=== PATIENT | female | born 1960 | race Caucasian/White ===

== ENCOUNTER 2025-01-18 19:01 | Emergency (ER) | payer MEDICARE, MEDICAID, SELFPAY ==
[2025-01-18 19:08] VITALS: BP 138/80; PULSE 60; RESP 12; TEMP 35.9; O2SAT 95; BMI 38.6
--- NOTE | 2025-01-18 19:50 | ED.FALL ---
HPI - Fall General Chief Complaint: Fall Stated Complaint: Fell, caught LLE on bedframe Time Seen by Provider: 01/18/25 19:49 Source: patient Mode of arrival: Ambulatory History of Present Illness HPI Narrative: Patient is a 64-year-old female history of seizure disorder developmental delay presenting today with left foot pain. Here with brother at bedside state that she tripped over her stool at bedside last night when she got tangled up. Landing on her foot under her. Today it is tender for her to walk she denies any ankle pain or knee pain. No head injury. Related Data Allergies Allergy/AdvReac Type Severity Reaction Status Date / Time No Known Drug Allergies Allergy Verified 01/18/25 19:09 Patient History Social History Smoking Status: Never smoker Smoking Status: Never smoker Exam Initial Vital Signs Initial Vital Signs: Vital Signs Temperature 96.6 F L 01/18/25 19:08 Pulse Rate 60 01/18/25 19:08 Respiratory Rate 12 01/18/25 19:08 Blood Pressure 138/80 01/18/25 19:08 Pulse Oximetry 95 01/18/25 19:08 Oxygen Delivery Method Room Air 01/18/25 19:08 GENERAL: Well-appearing, well-nourished and in no acute distress. CARDIOVASCULAR: peripheral pulses in tact, cap refill <2 sec RESPIRATORY: No respiratory distress, speaks in full sentences without difficulty EXTREMITIES: Normal range of motion, no clubbing or edema. Neurovascularly intact Left foot swelling noted mid foot is tender distal pedal pulse intact. Ankle stable no significant malleoli tenderness knee is stable no fibular head tenderness NEUROLOGICAL: Cranial nerves II through XII grossly intact. Normal gait and speech. SKIN: Warm, dry, no petechiae, no rashes or lesions. Course Orders Ordered: ED Orders 01/18/25 19:50 XR foot LT min 3V Stat Discontinued Medications Acetaminophen (Acetaminophen 325 Mg Tablet) 975 mg PO NOW ONE Stop: 01/18/25 19:51 Last Admin: 01/18/25 19:57 Dose: 975 mg Documented By: LEON Vital Signs Vital signs: Vital Signs - 8 hr 01/18/25 19:08 Temperature 96.6 F L Pulse Rate 60 Respiratory Rate 12 Blood Pressure 138/80 Pulse Oximetry 95 Oxygen Delivery Method Room Air MDM - Fall Imaging Data Extremity x-ray #1: Radiologist's Impression: PROCEDURE: XR FOOT LT MIN 3V INDICATIONS: pain injury TECHNIQUE: 3 views of the foot were acquired. COMPARISON: None. FINDINGS: Bones: Severe hallux valgus angulation of the left great toe and lateral deviation of the toes. Moderate degenerative changes of the 1st metatarsophalangeal joint and 1st IP joint. Moderate degenerative changes of the midfoot. No definite fracture. No dislocation seen. No suspicious osseous lesions. Soft tissues: No tibiotalar joint effusion. Achilles tendon appears normal. Mild distal forefoot soft tissue swelling. IMPRESSION: Mild soft tissue swelling of the left forefoot without underlying fracture or dislocation. Severe hallux valgus angulation of the left great toe and associated degenerative changes of the 1st toe. If there is persistent clinical concern for occult fracture given adequate mechanism of injury, consider repeat imaging in 10-14 days. Immobilization as clinically indicated. Dictated by: Denzel Rudd M.D. on 01/18/2025 at 20:29 [facility] Narrative Medical decision making narrative: Patient 64-year-old female presenting today with mechanical fall yesterday and left foot pain. Foot is mildly tender and swollen x-ray is negative for acute fracture. Given orthopedic shoe may need repeat x-ray in 7-10 days Discharge Plan Departure Patient Disposition: Home Clinical Impression: Sprain of foot, left Activity Restrictions/Additional Instructions: *You have been diagnosed with left foot sprain *What to do: Increase activity as tolerated wear supportive shoe as needed. May eat a repeat x-ray in 5-7 days if still having pain *Continue to take medications as directed Tylenol or Motrin as needed for pain *Follow up with your primary care provider in 2-3 days or call [phone] *Return to ER if you should have increasing pain weakness redness or any new, worsening or concerning symptoms Referrals: Amaya Osorio MD [Primary Care Provider, Family Practice] Stand Alone Forms: Patient Portal/API
[2025-01-18] MEDS: ACETAMINOPHEN 325 MG TABLET 975 MG PO (19:57)
[2025-01-18 20:55] VITALS: BP 130/87; PULSE 88; RESP 20; TEMP 37.2; O2SAT 96
== END 2025-01-18 21:11 | disposition home or self-care (01) ==
PROVIDERS: Emergency Provider Emergency Medicine; PCP Family Medicine
DX: S93.602A Unspecified sprain of left foot, initial encounter (principal); W01.0XXA Fall on same level from slipping, tripping and stumbling without subsequent striking against object, initial encounter
CPT/HCPCS: 73630; 99283